=== PATIENT | male | born 1995 | race Caucasian/White ===

== ENCOUNTER → 2016-08-16 12:22 | Emergency (ER) | payer SELFPAY | END | disposition left against medical advice (07) | LOC: D.ER 12:22 | DX: Z02.9 Encounter for administrative examinations, unspecified (principal) ==

== ENCOUNTER 2017-03-26 18:29 | Emergency (ER) | payer OTHER | END 2017-03-26 19:33 | disposition home or self-care (01) | LOC: D.ER 18:29 | DX: F41.9 Anxiety disorder, unspecified (principal) ==